=== PATIENT | male | born 1955 | race Hispanic/Latino ===

== ENCOUNTER 2022-03-20 20:19 | Emergency (ER) | payer OTHER ==
[~2022-03-20] VITALS: Ht 162.6 cm; Wt 73.5 kg
--- NOTE | 2022-03-20 21:40 | EKG ---
[facility] [address] [facility] [place] [address] Signed Sinus tachycardia Nonspecific ST abnormality Abnormal ECG No previous ECGs available Confirmed by Lenny Self MD () on 03/20/2022 9:39:59 PM Electronically Signed By: LENNY SELF MD 03/20/222139 PATIENT NAME: KAILEY SILVA Electrocardiogram DATE OF : 59 PHYSICIAN: LENNY SELF MD REPORT #: [id number] REPORT IS CONFIDENTIAL AND NOT TO BE RELEASED WITHOUT AUTHORIZATION
== END 2022-03-20 23:01 | disposition home or self-care (01) ==
LOC: ED 20:19
DX: F41.9 Anxiety disorder, unspecified (principal); I10 Essential (primary) hypertension
CPT/HCPCS: 36415; 80053; 85025; 93005; 93010; 96374; 96375; 99285-25; J2060; J7030